=== PATIENT | male | born 1975 | race Caucasian/White ===

== ENCOUNTER 2018-01-31 09:01 | Emergency (ER) | payer OTHER ==
[2018-01-31 09:24] VITALS: BP 137/93
[2018-01-31] MEDS ORDERED: Lidocaine 1%* 5 ML VIAL INJ ONE (09:40)
[2018-01-31] MEDS ORDERED: Ibuprofen TAB* 600 MG PO ONE (09:40)
[2018-01-31] MEDS ORDERED: Cephalexin CAP* 500 MG PO ONE (09:45)
--- NOTE | 2018-01-31 10:12 | RAD ---
INDICATION: Left fifth finger laceration. TECHNIQUE: 3 views of the left fifth finger were obtained. FINDINGS: There is a soft tissue defect present along the anterior lateral aspect of the finger at the level of the middle phalanx. No fracture or radiopaque foreign body is seen. Joint spaces appear maintained. IMPRESSION: SOFT TISSUE INJURY, NO EVIDENCE FOR FRACTURE OR RADIOPAQUE FOREIGN BODY.
--- NOTE | 2018-01-31 18:31 | ED ---
Upper Extremity Pain - HPI Summary HPI Summary: Patient is a 42-year-old male who presents emergency department after being referred to the ER by [facility] for open fracture to finger. Patient states he was at work and got his finger caught between 2 pieces of machinery. He states his last tetanus immunization was 2 years ago. Past medical history of diabetes. Symptoms are mild in severity. Touching and moving affected area makes symptoms worse. Rest symptoms better. Patient was not given a x-ray disc or report from urgent care. - History of Current Complaint Chief Complaint: EDExtremityUpper Stated Complaint: LT PINKY LACERATION/POSS BROKEN Time Seen by Provider: 01/31/18 09:27 Hx Obtained From: Patient - Allergies/Home Medications Allergies/Adverse Reactions: Allergies Allergy/AdvReac Type Severity Reaction Status Date / Time No Known Allergies Allergy Verified 01/31/18 09:23 PMH/Surg Hx/FS Hx/Imm Hx Previously Healthy: Yes Infectious Disease History: No Infectious Disease History: Denies: Traveled Outside the [place] in Last 30 Days - Family History Known Family History: Positive: Other - Noncontributory - Social History Occupation: Employed Full-time Lives: With Family Alcohol Use: Occasionally Substance Use Type: Reports: None Smoking Status (MU): Light Every Day Tobacco Smoker Review of Systems Positive: Other - Injury to left 5th digit of hand. All Other Systems Reviewed And Are Negative: Yes Physical Exam Triage Information Reviewed: Yes Vital Signs On Initial Exam: Initial Vitals Temp Pulse Resp BP Pulse Ox 98.2 F 74 16 137/93 97 01/31/18 09:20 01/31/18 09:20 01/31/18 09:20 01/31/18 09:20 01/31/18 09:20 Vital Signs Reviewed: Yes Appearance: Positive: Well-Appearing - Pt. sitting on bed in NAD. Skin: Positive: Warm, Dry Head/Face: Positive: Normal Head/Face Inspection Eyes: Positive: Normal, EOMI Neck: Positive: Supple Musculoskeletal: Positive: Other - Superficial, roughly 1 cm skin flap and avulsion noted over the DIP joint on the volar aspect of the 5th digit of left hand. Full range of motion of the finger and flexor tendon is intact. Neurological: Positive: Normal, CN Intact II-III Psychiatric: Positive: Affect/Mood Appropriate Procedures - Procedure Summary Procedure Summary: Wound Care: Wound was irrigated and cleansed with Hibiclens. Sterile dressing was placed. Finger splint was placed to keep finger straight so wound can heal. Diagnostics - Vital Signs Vital Signs Temp Pulse Resp BP Pulse Ox 01/31/18 09:20 98.2 F 74 16 137/93 97 - Laboratory Lab Statement: Any lab studies that have been ordered have been reviewed, and results considered in the medical decision making process. Course/Dx - Course Course Of Treatment: Pt. presenting with finger injury. Tetanus is up-to-date. X-ray is negative for fracture or dislocation or foreign body per radiology reading. Wound was cleaned as noted above and dressed. Wound is non-suturable as there is a small avulsion and superficial skin flap, palpation and agrees with this. Finger splint Was placed to keep the finger straight as wound is over the joint. Advised patient to apply [id number] antibiotic ointment. Keep wound clean and dry. To keep wound covered at work. To follow-up with PCP for wound check and return to the ER for redness, swelling or drainage from wound. Patient understands and agrees with plan. - Diagnoses Differential Diagnosis/HQI/PQRI: Positive: Contusion, Fracture (Open), Strain, Sprain Provider Diagnoses: Finger injury, Superficial wound Discharge - Sign-Out/Discharge Documenting (check all that apply): Patient Departure - Discharge Plan Condition: Good Disposition: HOME Patient Education Materials: Acute Wound Care (ED) Referrals: Angella Dawn DO [Primary Care Provider] - Additional Instructions: Follow up with workmen's comp or PCP Keep wound clean and dry Wear splint x 1 week to avoid bending finger Apply over the counter antibiotic ointment Return to ER for redness, swelling or drainage from wound - Billing Disposition and Condition Condition: GOOD Disposition: Home
== END 2018-01-31 11:05 | disposition home or self-care (01) ==
LOC: ED 09:01
DX: S61.217A Laceration without foreign body of left little finger without damage to nail, initial encounter (principal); W31.9XXA Contact with unspecified machinery, initial encounter; Y92.9 Unspecified place or not applicable; Y99.0 Civilian activity done for income or pay; F17.200 Nicotine dependence, unspecified, uncomplicated
CPT/HCPCS: 73140; 99282; A9270-GY